=== PATIENT | male | born 1990 | race Two or more races ===

== ENCOUNTER 2018-05-27 23:23 | Emergency (ER) | payer MEDICAID ==
[~2018-05-27] VITALS: Ht 177.8 cm; Wt 83.5 kg
[2018-05-28 01:01] VITALS: BP 117/68
[2018-05-28] MEDS ORDERED: LIDOCAINE W/ EPINEPHRINE 2% INJ 20ML VIAL IJ ONE (01:45)
[2018-05-28] MEDS ORDERED: TETANUS-DIPTH-ACEL PERTUSSIS 0.5ML SYRG IM ONE (01:45)
[2018-05-28] MEDS ORDERED: cefTRIAXone SOD 1,000 MG VL IM ONE (01:45)
== END 2018-05-28 02:11 | disposition home or self-care (01) ==
LOC: ER 23:28
DX: S51.811A Laceration without foreign body of right forearm, initial encounter (principal); A35 Other tetanus; J45.909 Unspecified asthma, uncomplicated; W26.0XXA Contact with knife, initial encounter; Y93.39 Activity, other involving climbing, rappelling and jumping off; Y92.098 Other place in other non-institutional residence as the place of occurrence of the external cause; Y99.8 Other external cause status
CPT/HCPCS: 12002; 90471; 90715; 96372; 99283; J0696

== ENCOUNTER 2022-12-25 21:33 | Emergency (ER) | payer SELFPAY ==
[~2022-12-25] VITALS: Ht 180.3 cm; Wt 90.5 kg
[2022-12-25] MEDS ORDERED: ACETAMINOPHEN 325 MG TAB PO ONE (23:15)
[2022-12-25] MEDS ORDERED: ACET500T58 PO (23:42)
[2022-12-25] MEDS ORDERED: CIPR500T4 PO (23:42)
[2022-12-25] MEDS ORDERED: SODIUM CHLORIDE 0.9% 1,000 ML IV ONE (23:45)
[2022-12-25] MEDS ORDERED: CIPROFLOXACIN 400MG/200ML 200 ML IV ONE (23:45)
[2022-12-26 00:41] LABS: Urine Bacteria FEW /hpf (None Seen); Urine Blood 1+ /uL (Negative); Urine Clarity CLOUDY (Clear); Urine Color Yellow (Yellow); Urine Mucus FEW (None Seen); Urine Protein, UAD 2+ (Negative); Urine WBC 2583 /hpf (0 - 3); Urine WBC Clumps PRESENT /hpf (None Seen)
[2022-12-26 01:00] VITALS: BP 104/54; PULSE 78; RESP 18
[2022-12-26] MEDS ORDERED: cefTRIAXone SOD 1,000 MG VL IM ONE (01:15)
[2022-12-26 01:30] VITALS: TEMP 99.2
[2022-12-26 01:48] VITALS: O2SAT 97
== END 2022-12-26 02:45 | disposition home or self-care (01) ==
LOC: EDBD 21:33 → ER 21:33
DX: N39.0 Urinary tract infection, site not specified (principal); J45.909 Unspecified asthma, uncomplicated; F17.210 Nicotine dependence, cigarettes, uncomplicated; F15.90 Other stimulant use, unspecified, uncomplicated; Z79.899 Other long term (current) drug therapy
CPT/HCPCS: 81001; 96372; 99283; J0696